=== PATIENT | male | born 1980 | race Caucasian/White ===

== ENCOUNTER 2017-06-23 12:44 | Emergency (ER) | payer MEDICAID ==
[~2017-06-23] VITALS: Ht 182.9 cm; Wt 89.4 kg
[2017-06-23] MEDS ORDERED: LORazepam 1MG TABLET ONE (13:24)
[2017-06-23] MEDS ORDERED: LORazepam 1MG TABLET PO ONE (13:30)
[2017-06-23 15:57] VITALS: BP 124/95
== END 2017-06-23 16:12 | disposition left against medical advice (07) ==
LOC: ED 13:56
DX: F41.1 Generalized anxiety disorder (principal)
CPT/HCPCS: 99284

== ENCOUNTER 2020-07-13 11:03 | Emergency (ER) | payer SELFPAY ==
[~2020-07-13] VITALS: Ht 182.9 cm; Wt 95.1 kg
[2020-07-13 11:59] VITALS: BP 138/73
== END 2020-07-13 12:04 | disposition home or self-care (01) ==
LOC: ED 11:34
DX: J45.21 Mild intermittent asthma with (acute) exacerbation (principal); R06.02 Shortness of breath; R06.00 Dyspnea, unspecified
CPT/HCPCS: 93005; 99283